=== PATIENT | male | born 1965 | race Two or more races ===

== ENCOUNTER 2021-12-25 10:45 | Inpatient (IN) | payer OTHER ==
[~2021-12-25] VITALS: Ht 177.8 cm; Wt 88.5 kg
[2021-12-25] MEDS ORDERED: TAMS0.4C PO (13:06)
[2021-12-25] MEDS ORDERED: ZESTRIL5 MG PO (13:06)
[2021-12-25] MEDS ORDERED: ALBUTEROL IH (13:07)
[2021-12-30] MEDS ORDERED: PROAIR HFA8.5 GM (09:12)
[2021-12-30] MEDS ORDERED: FINASTERIDE5 MG (09:15)
[2021-12-30] MEDS ORDERED: CHILDREN'S1 MG/1 M4 (09:15)
== END 2022-01-02 17:05 | disposition home or self-care (01) | DRG 330 ==
LOC: O/R 12-30 06:39 → SURG 12-30 06:39 → SURH 12-30 07:00 → SURG 12-30 12:27
PROVIDERS: ADMIT Colon & Rectal Surgery; ATTEND Colon & Rectal Surgery
PROC: 0DBP4ZZ Excision of Rectum, Percutaneous Endoscopic Approach (ICD-10-PCS; 2021-12-30)
PROC: 0WQF4ZZ Repair Abdominal Wall, Percutaneous Endoscopic Approach (ICD-10-PCS; 2021-12-30)
PROC: 0DTN4ZZ Resection of Sigmoid Colon, Percutaneous Endoscopic Approach (ICD-10-PCS; principal; 2021-12-30 07:00)
DX: K57.32 Diverticulitis of large intestine without perforation or abscess without bleeding (principal); K92.1 Melena; K43.9 Ventral hernia without obstruction or gangrene; I11.9 Hypertensive heart disease without heart failure; J45.20 Mild intermittent asthma, uncomplicated